=== PATIENT | male | born 1935 | race Caucasian/White ===

== ENCOUNTER 2017-02-09 03:46 | Emergency (ER) | payer OTHER, BC ==
[~2017-02-09] VITALS: Ht 172.7 cm; Wt 79.6 kg
[2017-02-09 03:52] VITALS: TEMP 36.7; Ht 172.7 cm; Wt 79.6 kg
[2017-02-09] MEDS ORDERED: LIDOCAINE/EPINEPH/TETRACAINE 1 EA SYR EXT STA (03:59)
--- NOTE | 2017-02-09 04:10 | EMERGENCY ROOM VISIT NOTE ---
History Report prepared by Sonny: Jose Gallegos Under the Supervision of: Dr. Altaf Perez M.D. First contact with patient: 03:52 Chief Complaint: FALL Stated Complaint: FALL History of Present Illness The patient is a 81 year old male who presents to the Emergency Room with complaints of a sudden fall that occurred prior to arrival. He rates his pain as a 5/10 in severity. The patient states that he was at the [facility] and went to the bathroom. He reports that he came out of the bathroom, but reports that the room was dark. The patient states he tripped and hit his head causing a laceration to the left side of his face. He reports that following the incident he was able to get up and walk. The patient states that he used to take blood thinners for his history of heart attacks and other heart issues. He states that he currently takes aspirin every day. The patient denies loss of consciousness, hip or knee pain, neck pain from the accident, and a history of an irregular heartbeat. Source of History: patient Onset: [employer] Position: other (global) Symptom Intensity: 5/10 Timing: other (sudden) Associated Symptoms: No LOC, No neck pain Review of Systems See HPI for pertinent positives & negatives. A total of 10 systems reviewed and were otherwise negative. Past Medical & Surgical Medical Problems: (1) Heart attack Family History Patient reports no known family medical history. Social History Drug Use: none Marital Status: Housing Status: lives with significant other Occupation Status: retired Current/Historical Medications Scheduled Amlodipine (Norvasc), 5 MG PO DAILY Aspirin (Ecotrin Low Strength), 81 MG PO DAILY Calcium Carbonate-Vitamin D (Calcium + D), 600 MG PO DAILY Esomeprazole Magnesium (Nexium), 20 MG PO DAILY Febuxostat (Uloric), 40 MG PO DAILY Fenofibrate (Tricor), 54 MG PO DAILY Fish Oil ([place]-3), 1,000 MG PO DAILY Magnesium Oxide (Mg Supplement (Magnesium), 250 MG PO DAILY Metoprolol Succ (Toprol Xl) (Toprol-Xl), 50 MG PO DAILY Naproxen (Aleve), 440 MG PO DAILY Nitroglycerin (Nitrostat), 0.4 MG UT PRN Rosuvastatin Calcium (Crestor), 10 MG PO DAILY [Folic Acid], 800 MG PO DAILY Scheduled PRN Clonidine Hcl (Catapres), 0.1 MG PO DAILY PRN for PRN Furosemide (Lasix), 20 MG PO DAILY PRN for EDEMA Oxycodone/Acetaminophen 5MG/325MG (Percocet 5MG/325MG), 1 TAB PO QID PRN for Pain Allergies Coded Allergies: No Known Allergies (Unverified , 02/09/17) Physical Exam Vital Signs Date Time Temp Pulse Resp B/P (MAP) Pulse Ox O2 Delivery O2 Flow Rate FiO2 02/09/17 05:40 70 18 161/85 94 02/09/17 03:52 36.7 73 18 166/75 96 Room Air Physical Exam GENERAL: Patient is elderly, well appearing and in no acute distress. HEENT: No acute trauma, normocephalic atraumatic, mucous membranes moist, no nasal congestion, no scleral icterus. 4 cm curving laceration of the left maxillary sinus. Mild bruising of the left periorbital space. NECK: No stridor, no adenopathy, no meningismus, trachea is midline. LUNGS: No dyspnea. Clear to auscultation and equal bilaterally. No wheeze, no rhonchi. HEART: Regular rate and rhythm. No murmurs, rubs, gallops appreciated. ABDOMEN: Soft, nontender, bowel sounds positive, no masses appreciated, no peritonitis. BACK: No midline tenderness, no CVA tenderness EXTREMITIES: Normal motion all extremities, no cyanosis, no edema. NEUROLOGIC: Alert and oriented, no acute motor or sensory deficits, no focal weakness, cranial nerves grossly intact. SKIN: No rash, no jaundice, no diaphoresis. Medical Decision & Procedures ER Provider Diagnostic Interpretation: Stat Rad Impressions: CT Head, Cervical Spine, Face: Non-Con: No evidence acute fractures nor intracranial process. Medications Administered Medications (Trade) Dose Ordered Sig/Vinh Route Start Time Stop Time Status Last Admin Dose Admin Tetracaine/ Epinephrine/ Lidocaine (L.e.t. Gel 4%/ 1:100/0.5%) 1 ea NOW STAT EXT 02/09/17 03:59 02/09/17 04:00 DC 02/09/17 04:08 1 EA ED Course 0354: The patient was evaluated in room A02. A complete history and physical exam was performed. 0359: Ordered Tetracaine/ Epinephrine/ Lidocaine 1 each EXT. Medical Decision Differential: fracture, ICH, ligamentous injury, non-mechanical fall, Very pleasant 81 yr old male who has well remembered mechanically fall this morning resulting in left face injury/laceration. Notes mild neck pain without midline TTP, though as known severe arthritic disease I feel cervical imaging indicated. CTs without acute findings other than left face soft tissue findings. Stable and in no distress. No indication for labs, ekg, xrays. Sutured/Steri by Lynda Sutherland PA-C. Wound care discussed with patient and family. He will be seen by PCP later this week. Head Trauma GCS Score: 15 Medication Reconcilliation Current Medication List: was personally reviewed by me Blood Pressure Screening Patient's blood pressure: Elevated blood pressure Blood pressure disposition: Referred to PCP, Did not require urgent referral Impression Primary Impression: Laceration of face Additional Impression: Fall Scribe Attestation The scribe's documentation has been prepared under my direction and personally reviewed by me in its entirety. I confirm that the note above accurately reflects all work, treatment, procedures, and medical decision making performed by me. Departure Information Dispostion Home / Self-Care Patient Instructions ED Laceration Facial Sutr Tape, My Vertical Acuity Additional Instructions Sutures should be removed in 5 to 7 days depending on how wound heals. Discuss this with your primary care provider. Problem Qualifiers
[2017-02-09] MEDS ORDERED: MAGN250T8 PO (04:54)
[2017-02-09] MEDS ORDERED: METO50TA7 PO (04:55)
[2017-02-09] MEDS ORDERED: NAPR1TAB9 PO (04:56)
[2017-02-09] MEDS ORDERED: AMLO-110 PO (04:56)
[2017-02-09] MEDS ORDERED: ESOM20CA PO (04:57)
[2017-02-09] MEDS ORDERED: CALC600T9 PO (04:59)
[2017-02-09] MEDS ORDERED: OMEG10007 PO (05:00)
[2017-02-09] MEDS ORDERED: ASPI-428 PO (05:01)
[2017-02-09] MEDS ORDERED: CRS/10 PO (05:02)
[2017-02-09] MEDS ORDERED: FOLIC ACID PO (05:04)
[2017-02-09] MEDS ORDERED: FURO-85 PO (05:05)
[2017-02-09] MEDS ORDERED: FENO54TA PO (05:06)
--- NOTE | 2017-02-09 05:06 | EMERGENCY ROOM VISIT NOTE ---
ED Visit Note I was asked to do laceration repair this patient. Location: face Total length: 3cm, jagged Complexity: Simple Verbal consent was obtained after the risks and benefits were explained, including but not limited to bleeding, scarring, infection, pain, and bone/joint /nerve damage. At this time, the risks of the procedure are less than the risks of NOT performing the procedure. A time out was taken and the correct patient and site identified. The skin was prepped with betadine. The target area was anesthetized with LET. Copious irrigation was performed using NSS. The skin was re-prepped with betadine and a sterile field set. The wound was explored for foreign bodies and none found. Examination revealed no injury to deep structures such as tendons, bone, or significant blood vessels. Debridement was not performed. The wound edges were approximated using 7, 6-0 simple interrupted nylon sutures. Steri-Strips were then placed for reinforcement as patient also had skin tears present. Hemostasis and excellent approximation was achieved. Antibacterial ointment and a sterile dressing applied. Detailed wound care instructions and signs and symptoms of infection reviewed with the pt. No complications and the patient tolerated the procedure well. Current/Historical Medications Scheduled Amlodipine (Norvasc), 5 MG PO DAILY Aspirin (Ecotrin Low Strength), 81 MG PO DAILY Calcium Carbonate-Vitamin D (Calcium + D), 600 MG PO DAILY Esomeprazole Magnesium (Nexium), 20 MG PO DAILY Fish Oil ([place]-3), 1,000 MG PO DAILY Magnesium Oxide (Mg Supplement (Magnesium), 250 MG PO DAILY Metoprolol Succ (Toprol Xl) (Toprol-Xl), 50 MG PO DAILY Naproxen (Aleve), 440 MG PO DAILY Rosuvastatin Calcium (Crestor), 10 MG PO DAILY [Folic Acid], 800 MG PO DAILY Scheduled PRN Furosemide (Lasix), 20 MG PO DAILY PRN for EDEMA Vital Signs Date Time Temp Pulse Resp B/P (MAP) Pulse Ox O2 Delivery O2 Flow Rate FiO2 02/09/17 03:52 36.7 73 18 166/75 96 Room Air Medications Administered Medications (Trade) Dose Ordered Sig/Vinh Route Start Time Stop Time Status Last Admin Dose Admin Tetracaine/ Epinephrine/ Lidocaine (L.e.t. Gel 4%/ 1:100/0.5%) 1 ea NOW STAT EXT 02/09/17 03:59 02/09/17 04:00 DC 02/09/17 04:08 1 EA Departure Information Referrals No Doctor, Assigned (PCP) Patient Instructions [facility]
[2017-02-09] MEDS ORDERED: FEBU40TA PO (05:07)
[2017-02-09] MEDS ORDERED: OXYC-57 PO (05:08)
[2017-02-09] MEDS ORDERED: CLON0.1T12 PO (05:10)
[2017-02-09] MEDS ORDERED: NTRGSL/4 UT (05:11)
[2017-02-09 05:40] VITALS: BP 161/85; PULSE 70; O2SAT 94
--- NOTE | 2017-02-09 08:15 | DIAGNOSTIC IMAGING REPORT ---
CT OF THE HEAD WITHOUT CONTRAST CLINICAL HISTORY: Fall with left-sided facial injury. COMPARISON STUDY: No previous studies for comparison. TECHNIQUE: Helical axial images of the head were obtained without IV contrast. Automated exposure control was utilized for the study. A dose lowering technique was utilized adhering to the principles of ALARA. FINDINGS: No acute intracranial hemorrhage, midline shift or mass effect is present. Mild ventricular dilatation is likely due to atrophy. 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 White matter hypodensities suggest moderate small vessel disease. No calvarial fractures identified. Left facial contusions and laceration are better depicted on the maxillofacial CT. IMPRESSION: 1. No acute intracranial findings. 2. No calvarial fracture. 3. 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 Electronically signed by: Marquis Dyer M.D. 02/09/2017 8:14 AM Dictated Date/Time: 02/09/2017 8:11 AM
--- NOTE | 2017-02-09 08:18 | DIAGNOSTIC IMAGING REPORT ---
MAXILLOFACIAL CT WITHOUT CONTRAST CLINICAL HISTORY: Fall with left-sided facial injury. COMPARISON STUDY: None. TECHNIQUE: A maxillofacial CT was performed without IV contrast. Coronal and sagittal reformats were viewed. A dose lowering technique was utilized adhering to the principles of ALARA. FINDINGS: No acute facial fracture is identified. Note is made of a laceration lateral to the left zygomatic arch. A left infraorbital contusion is present. The globes are intact and there is no retrobulbar hematoma. Alignment of the temporomandibular joints is anatomic. IMPRESSION: 1. No acute facial fracture. 2. Left facial laceration and contusions. Left globe intact with no retrobulbar hematoma. Electronically signed by: Marquis Dyer M.D. 02/09/2017 8:17 AM Dictated Date/Time: 02/09/2017 8:14 AM
--- NOTE | 2017-02-09 08:23 | DIAGNOSTIC IMAGING REPORT ---
CT OF THE CERVICAL SPINE WITHOUT CONTRAST CLINICAL HISTORY: Fall. COMPARISON STUDY: No previous studies for comparison. TECHNIQUE: Helical axial images of the cervical spine were obtained without IV contrast. Sagittal and coronal reconstructions were viewed. A dose lowering technique was utilized adhering to the principles of ALARA. FINDINGS: Incidental note is made of postoperative findings within the bilateral mastoid air cells and mild mucosal thickening of the sinuses. No acute cervical spine fracture is identified. Alignment is anatomic. The craniocervical junction is intact. Moderate multilevel degenerative disc disease and facet arthrosis is present. Left apical opacity favors scarring. Biapical pleural calcification is noted. IMPRESSION: No acute cervical spine fracture or subluxation. Electronically signed by: Marquis Dyer M.D. 02/09/2017 8:21 AM Dictated Date/Time: 02/09/2017 8:17 AM
== END 2017-02-09 05:40 | disposition home or self-care (01) ==
LOC: EDBD 03:46 → C.EDA 03:49
DX: S01.81XA Laceration without foreign body of other part of head, initial encounter (principal); W01.0XXA Fall on same level from slipping, tripping and stumbling without subsequent striking against object, initial encounter; Y93.89 Activity, other specified; Y92.59 Other trade areas as the place of occurrence of the external cause; I25.2 Old myocardial infarction; Z79.82 Long term (current) use of aspirin; Z79.1 Long term (current) use of non-steroidal anti-inflammatories (NSAID)